=== PATIENT | male | born 1995 | race African-American/Black ===

== ENCOUNTER 2019-12-18 03:17 | Emergency (ER) | payer SELFPAY ==
[~2019-12-18] VITALS: Ht 185.4 cm; Wt 83.9 kg
--- NOTE | 2019-12-18 03:18 | NUR ---
Patient to ER CHAIR to gown for evaluation. Side rails up.
[2019-12-18 03:20] VITALS: BP_SYST 134
--- NOTE | 2019-12-18 03:22 | NUR ---
ROGER Lundy examining patient.
--- NOTE | 2019-12-18 03:31 | NUR ---
PT REFUSED BLOOD DRAW.DR HOBSON NOTIFIED.
--- NOTE | 2019-12-18 03:44 | NUR ---
Patient given written and verbal discharge instructions and verbalizes understanding. ER MD discussed with patient the results and treatment provided. Patient in stable condition. ID arm band removed. NO Rx of given. Patient educated on pain management and to follow up with PMD. Pain Scale 0/10. Opportunity for questions provided and answered. Medication side effect fact sheet provided.
[2019-12-18 03:46] VITALS: BP_SYST 134
== END 2019-12-18 03:46 | disposition home or self-care (01) ==
LOC: SED 03:17
DX: S00.81XA Abrasion of other part of head, initial encounter (principal); Y04.0XXA Assault by unarmed brawl or fight, initial encounter; Y93.89 Activity, other specified; Y92.89 Other specified places as the place of occurrence of the external cause; Y99.8 Other external cause status
CPT/HCPCS: 99283